=== PATIENT | male | born 1935 | race Caucasian/White ===

== ENCOUNTER → 2016-08-17 | Outpatient (CLI) | payer OTHER ==
[~2016-08-17] MED LIST: ACETAMINOPHEN PO; ASPIRIN PO; ASPIRIN81 MG PO; CERTAGEN PO; COREG PO; COREG12.5 MG PO; DIOVAN HCT 160-1 TAB PO; FISH OIL 1,0001 CAP PO; FISH OIL 1,001000 M1 PO; FLOMAX0.4 M1 PO; GLUCOPHAGE XR500 MG PO; LISINOPRIL-HCTZ1 T14 PO; METFORMIN HCL500 M1 PO; MULTI VITAMIN1 EACH PO; PROTONIX PO; SIMVASTATIN40 MG PO; VITAMIN B-121000 MCG PO; ZESTRIL40 MG PO; ZOCOR PO
--- NOTE | ~2016-08-17 | CT55 ---
[facility] A Service [facility] RADIOLOGY TEXT RESULTS PATIENT: JULI MEDEIROS LOCATION: [facility] : 34 UNIT #: [id number] AGE: [address]: Shan Narayanan MD SEX: M ORDER DR: [id number] [place] [id number] [facility]. [place], [place] [address] [id number] O MR#: [id number] [facility] #: [id number] NAME: JULI MEDEIROS : 1935 SEX: M STUDY DATE/TIME: 08/17/2016 14:58 UNIT: [facility] ROOM: STUDY DESCRIPTION: CT Chest W Con Attending Physician: Shan Narayanan M.D. Referring Physician: Shan Narayanan M.D. Ordering Physician: Shan Narayanan M.D. Primary Care Physician: Ricky Espitia M.D. MEDICAL IMAGING REPORT This report is preliminary unless electronic signature is present EXAM CT of the chest with contrast. INDICATION Follow up liver cancer. Observation for metastatic disease. TECHNIQUE CT of the chest was performed following the administration of IV contrast. Coronal and sagittal reformatted images were obtained. This CT exam was performed with one or more of the following radiation dose reduction techniques: automatic exposure control, adjustment of mA and/or kV according to patient size, and iterative reconstruction. COMPARISON STUDIES Comparison with 03/07/2016. FINDINGS Interval improvement in the appearance of the lungs. The previously noted pleural effusions have nearly completely resolved. There is resolution of the interstitial thickening and ground-glass opacities in the lungs. There is no suspicious pulmonary nodule or airspace consolidation. There is no suspicious lymphadenopathy. Prior CABG. Please refer to separately dictated CT of the abdomen and pelvis for findings below the diaphragm. The bone windows are unremarkable. IMPRESSION No evidence of metastatic disease to the chest. Improved appearance of the lungs. Dictated by... [facility] A Service of [facility] RADIOLOGY TEXT RESULTS PATIENT: JULI MEDEIROS LOCATION: [facility] : 34 UNIT #: [id number] AGE: [address]: Shan Narayaann MD SEX: M ORDER DR: Camacho Leary M.D. THIS IS AN ELECTRONICALLY VERIFIED REPORT Camacho Leary M.D. at 08/18/2016 4:50 PM Buster TD: 08/18/2016 09:19 JOB #: [id number] MEDICAL IMAGING REPORT Page 1 of 1 COPY
--- NOTE | ~2016-08-17 | CT2 ---
[facility] A Service of [facility] RADIOLOGY TEXT RESULTS PATIENT: JULI MEDEIROS LOCATION: [facility] EDT : 34 UNIT #: [id number] AGE: [address]: Shan Narayanan MD SEX: M ORDER DR: [id number] [place] [id number] [facility]. [place], [place] [address] [id number] O MR#: [id number] [facility] #: [id number] NAME: JULI MEDEIROS : 1935 SEX: M STUDY DATE/TIME: 08/17/2016 14:58 UNIT: [facility] EDT ROOM: STUDY DESCRIPTION: CT Abd and Pelv W Cont Attending Physician: Shan Narayanan M.D. Referring Physician: Shan Narayanan M.D. Ordering Physician: Shan Narayanan M.D. Primary Care Physician: Ricky Espitia M.D. MEDICAL IMAGING REPORT This report is preliminary unless electronic signature is present EXAM CT of the abdomen and pelvis with contrast INDICATION Followup liver cancer. TECHNIQUE CT of the abdomen and pelvis was performed following the administration of IV contrast. Coronal and sagittal reformatted images were obtained. This CT exam was performed with one or more of the following radiation dose reduction techniques: automatic exposure control, adjustment of mA and/or kV according to patient size, and iterative reconstruction. COMPARISON 03/07/2016 FINDINGS There is diffuse either primary or metastatic disease within the liver. The contrast bolus timing is late so direct comparison between the 2 studies is difficult but overall there does not appear to be much change in the cholecystectomy. Spleen is unremarkable. The kidneys are unremarkable. The adrenal glands are unremarkable. The pancreas is unremarkable. There is some stable edema within the mesentery. There is a scant amount of ascites adjacent to the liver. PELVIS: Sigmoid diverticulosis. 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 Prostatomegaly. No free fluid. The bone windows are unremarkable. IMPRESSION No significant change in the amount of tumor within the liver. No new disease. [facility] A Service of [facility] RADIOLOGY TEXT RESULTS PATIENT: JULI MEDEIROS LOCATION: [facility] : 34 UNIT #: [id number] AGE: [address]: Shan Narayanan MD SEX: M ORDER DR: Dictated by... Camacho Leary M.D. THIS IS AN ELECTRONICALLY VERIFIED REPORT Camacho Leary M.D. at 08/18/2016 4:50 PM Manohar TD: 08/18/2016 09:26 JOB #: [id number] MEDICAL IMAGING REPORT Page 1 of 1 COPY
[2016-08-17 14:40] LABS: POC - CREATININE 0.84 mg/dL (0.64-1.27); POC - GFR >60.0 mL/min (>60)
== END | disposition home or self-care (01) ==
LOC: CCAT 13:57
PROVIDERS: Internal Medicine Hematology
DX: D50.9 Iron deficiency anemia, unspecified (principal)
CPT/HCPCS: 71260; 74177; 82565; Q9967

== ENCOUNTER → 2016-10-18 | Outpatient (CLI) | payer OTHER ==
--- NOTE | ~2016-10-18 | CT55 ---
[facility] A Service of [facility] RADIOLOGY TEXT RESULTS PATIENT: JULI MEDEIROS LOCATION: [facility] : 34 UNIT #: [id number] AGE: [address]: Shan Narayanan MD SEX: M ORDER DR: [id number] [facility] [address] [facility]. [place], [place] [address] [id number] O MR#: [id number] Acc #: [id number] NAME: JULI MEDEIROS : 1935 SEX: M STUDY DATE/TIME: 10/18/2016 16:31 UNIT: [facility] ROOM: STUDY DESCRIPTION: CT Chest W Con Attending Physician: Shan Narayanan M.D. Referring Physician: Shan Narayanan M.D. Ordering Physician: Shan Narayanan M.D. Primary Care Physician: Ricky Espitia M.D. MEDICAL IMAGING REPORT This report is preliminary unless electronic signature is present EXAM CT chest with contrast. INDICATION Restaging carcinoid tumor. Observation for metastatic disease. PROCEDURE Contrast-enhanced CT chest. This CT exam was performed with one or more of the following radiation dose reduction techniques: automatic exposure control, adjustment of mA and/or kV according to patient size, and iterative reconstruction. COMPARISON 08/17/16 FINDINGS The lungs are clear. No pulmonary nodule. No pleural fluid or pneumothorax. No adenopathy. Previous CABG. No aggressive appearing bone lesion. IMPRESSION No acute findings. No evidence for metastatic disease to the chest. Dictated by... Lonny Scott M.D. THIS IS AN ELECTRONICALLY VERIFIED REPORT Lonny Scott M.D. at 10/20/2016 2:17 PM MAXIMUS/perico TD: 10/19/2016 16:47 [facility] A Service of [facility] RADIOLOGY TEXT RESULTS PATIENT: JULI MEDEIROS LOCATION: [facility] : 34 UNIT #: [id number] AGE: [address]: Shan Narayanan MD SEX: M ORDER DR: JOB #: [id number] MEDICAL IMAGING REPORT Page 1 of 1 COPY
--- NOTE | ~2016-10-18 | CT2 ---
[facility] A Service of [facility] RADIOLOGY TEXT RESULTS PATIENT: JULI MEDEIROS LOCATION: [facility] : 34 UNIT #: [id number] AGE: [address]: Shan Narayanan MD SEX: M ORDER DR: [id number] [facility] [address] [facility]. [place], [place] [address] [id number] O MR#: [id number] Acc #: [id number] NAME: JULI MEDEIROS : 1935 SEX: M STUDY DATE/TIME: 10/18/2016 15:12 UNIT: [facility] ROOM: STUDY DESCRIPTION: CT Abd and Pelv W Cont Attending Physician: Shan Narayanan M.D. Referring Physician: Shan Narayanan M.D. Ordering Physician: Shan Narayanan M.D. Primary Care Physician: Ricky Espitia M.D. MEDICAL IMAGING REPORT This report is preliminary unless electronic signature is present EXAM CT abdomen and pelvis with contrast. INDICATION Iron deficiency anemia. Malignant carcinoid tumor, restaging. Observation for metastatic disease. PROCEDURE Contrast-enhanced CT of the abdomen and pelvis. This CT exam was performed with one or more of the following radiation dose reduction techniques: automatic exposure control, adjustment of mA and/or kV according to patient size, and iterative reconstruction. COMPARISON 08/17/2016 FINDINGS Refer to the separately dictated chest CT for thoracic findings. ABDOMEN WITH CONTRAST: Multifocal left hepatic metastatic disease. An index lesion in segment 5 of the liver measures 3.3 cm, previously 3.1 cm. The overall extent of disease appears very similar. Spleen, adrenal glands, pancreas unremarkable. Previous cholecystectomy. 4 mm nonobstructing calculus in the right kidney. The bowel loops are nondilated. Postoperative change small bowel in the right mid abdomen. No abdominal adenopathy. PELVIS WITH CONTRAST: Prostate measures 6.2 cm. No pelvic adenopathy. No aggressive appearing bone lesion. IMPRESSION [facility] A Service of [facility] RADIOLOGY TEXT RESULTS PATIENT: MEDEIROS,JULI E LOCATION: [facility] : 34 UNIT #: [id number] AGE: [address]: Shan Narayanan MD SEX: M ORDER DR: Overall stable extent of hepatic metastatic disease. However, an index lesion in the inferior right hepatic lobe measures minimally larger than on the previous CT. There is no evidence for metastatic disease elsewhere in the abdomen or pelvis. Dictated by... Lonny Scott M.D. THIS IS AN ELECTRONICALLY VERIFIED REPORT Lonny Scott M.D. at 10/20/2016 2:17 PM MAXIMUS/jaya TD: 10/19/2016 16:43 JOB #: [id number] MEDICAL IMAGING REPORT Page 1 of 1 COPY
[2016-10-18 17:01] LABS: POC - CREATININE 0.95 mg/dL (0.64-1.27); POC - GFR >60.0 mL/min (>60)
== END | disposition home or self-care (01) ==
LOC: CCAT 15:02
PROVIDERS: Internal Medicine Hematology
DX: C7A.011 Malignant carcinoid tumor of the jejunum (principal); D50.9 Iron deficiency anemia, unspecified
CPT/HCPCS: 71260; 74177; 82565; Q9967